=== PATIENT | male | born 1960 | race Hispanic/Latino ===

== ENCOUNTER 2018-04-18 10:10 | Inpatient (IN) | payer OTHER, SELFPAY ==
[2018-04-18] VITALS (8 sets, daily range): BP systolic 122–159; BP diastolic 72–96; PULSE 54–65; RESP 15–18; TEMP 36.4–37.1; O2SAT 96–99; BMI 34.0
--- NOTE | 2018-04-18 10:25 | DI.RAD.S_ITS ---
PROCEDURE: XR CHEST 2V INDICATIONS: pt in waiting room TECHNIQUE: 2 views of the chest were acquired. COMPARISON: None. FINDINGS: Surgical changes and devices: None. Lungs and pleura: Lungs are clear. No pleural effusions or pneumothorax. Mediastinum: Mediastinal contours are normal. Heart size is normal. Bones and chest wall: No suspicious bony abnormalities. Soft tissues appear unremarkable. IMPRESSION: No acute disease. No focal consolidation. Dictated by: Doc Guerra M.D. on 04/18/2018 at 10:36 Approved by: Doc Guerra M.D. on 04/18/2018 at 10:36
--- NOTE | 2018-04-18 11:50 | ED_ITS ---
HPI - Recheck/Abnormal Lab/Rx General Chief Complaint: Recheck/Abnormal Lab/Rx Stated Complaint: Vomiting/dehydrated Time Seen by Provider: 04/18/18 11:50 Source: patient Mode of arrival: ambulatory Limitations: no limitations History of Present Illness HPI narrative: This a 57-year-old male who comes in with complaint of vomiting diarrhea for about 3 days. Patient states it started about Monday. He states that 2 weeks ago he was seen at a hospital in [facility] he had left-sided chest pain that was worse with of his arm as well as a cough that would not resolve. Patient was diagnosed with pneumonia and started on antibiotic which he states he was taking once daily. He states that his cough has improved as well as the chest pain. He states he was overnight in the ER and was not admitted patient denies any fevers. He has been having a vomiting frequently and able to sometimes keep down fluids but not consistently. He states he has also been having loose watery stools multiple times a day. He states he has not noticed any black or blood. Patient denies any dysuria, urgency or frequency. He has abdominal pain on the left side which has been worsening. It is not radiate to his back. Patient states he was diagnosed with hypertension and started on blood pressure medication. He also states that he had some kind of issue with his bowel where it was blocked or twisted and they did what he describes as laparoscopic surgery to resolve it. He states this was several years ago he is not sure if it was a bowel obstruction, volvulus or other cause. Patient lives in the [facility], he has been working on [employer]. Related Data Home Medications Medication Instructions Recorded Confirmed albuterol sulfate [Ventolin HFA] 2 puff INHALATION Q4H PRN 04/18/18 04/18/18 gabapentin 300 mg PO BEDTIME PRN 04/18/18 04/18/18 losartan 50 mg PO DAILY 04/18/18 04/18/18 Allergies Allergy/AdvReac Type Severity Reaction Status Date / Time No Known Drug Allergies Allergy Verified 04/18/18 10:23 Review of Systems Review of Systems ROS Unobtainable: All systems reviewed & are unremarkable except as noted in HPI and below Constitutional Denies chills, Denies fever(s), Denies lethargy and Denies weakness Cardiovascular Denies chest pain, Denies edema, Denies dyspnea and Denies dyspnea on exertion Respiratory Denies change in phlegm color, Denies chest congestion, Denies cough, Denies pain on inspiration, Denies dyspnea and Denies dyspnea on exertion Gastrointestinal Gastrointestinal: Reports abdominal pain (Left upper abdomen), Denies melena, Reports bloating, Denies hematochezia, Denies change in bowel habits, Reports diarrhea, Reports nausea, Reports vomiting and Denies hematemesis Genitourinary Denies hematuria, Denies flank pain and Denies urinary urgency Musculoskeletal Denies back pain and Denies radiating pain into limb Neurologic Denies weakness [facility] Medical History Hypertension (Acute) Gout (Chronic) Incisional hernia (Chronic) Surgical History History of laparoscopy (Resolved) Social History details: Lives in [facility] Smoking Status: Never smoker Social History details: Lives in [facility] household members: spouse Smoking Status: Never smoker Exam Narrative Exam Narrative: GENERAL: Alert and oriented x three, well-nourished, well-appearing male in mild distress. HEENT: Head normocephalic, atraumatic, EOMI, pupils reactive, face symmetric, moist mucous membranes NECK: Supple, full range of motion CARDIOVASCULAR: Regular rate and rhythm without murmurs, rubs or gallops. RESPIRATORY: Breath sounds equal bilaterally, no wheezes rales or rhonchi. ABDOMEN: Soft, positive for left upper quadrant tenderness, present but mild in the left lower quadrant. Hypoactive bowel sounds all 4 quadrants. No guarding or rebound, rigidity, no mass. Mildly distended, no tympany. : No CVA tenderness EXTREMITIES: Normal range of motion, no clubbing or edema. Neurovascularly intact NEUROLOGICAL: Cranial nerves II through XII grossly intact. Moving all extremities SKIN: Warm, dry, no petechiae, no rashes or lesions. Initial Vital Signs Initial Vital Signs: Vital Signs Temperature 98.7 F 04/18/18 10:23 Pulse Rate 59 L 04/18/18 10:23 Respiratory Rate 18 04/18/18 10:23 Blood Pressure 159/96 H 04/18/18 10:23 Pulse Oximetry 99 04/18/18 10:23 Course Orders Ordered: ED Orders 04/18/18 10:25 XR chest 2V Stat 04/18/18 11:49 EKG-12 Lead Stat 04/18/18 12:05 Complete Blood Count AUTO DIFF Stat Comprehensive Metabolic Panel Stat Lipase Stat Partial Thromboplastin Time Stat Prothrombin Time INR Stat 04/18/18 12:25 Urine Microscopic Stat 04/18/18 12:32 CT abdomen pelvis w con Stat 04/18/18 16:16 Consult to Discharge Planning Routine Education, smoking cessation ONGOING 04/19/18 05:00 Complete Blood Count AUTO DIFF Routine Comprehensive Metabolic Panel Routine Enoxaparin Sodium (Lovenox) 40 mg SUBCUT DAILY [facility] Last Admin: 04/18/18 19:24 Dose: 40 mg Lactated Ringer's (Lactated Ringers) 1,000 mls @ 175 mls/hr IV CONT [facility] Last Admin: 04/18/18 19:23 Dose: 175 mls/hr Losartan Potassium (Cozaar) 50 mg PO DAILY [facility] Naloxone HCl (Narcan) 0.2 mg IV Q2MIN PRN PRN Reason: Opiate Reversal Discontinued Medications Acetaminophen (Tylenol) 975 mg PO NOW ONE Stop: 04/18/18 12:06 Last Admin: 04/18/18 13:04 Dose: 975 mg Sodium Chloride (Normal Saline 0.9%) 1,000 mls @ 1,000 mls/hr IV BOLUS ONE Stop: 04/18/18 13:04 Last Infusion: 04/18/18 14:37 Dose: 0 mls/hr Admin: 04/18/18 12:13 Dose: 1,000 mls/hr Sodium Chloride (Normal Saline 0.9%) 1,000 mls @ 200 mls/hr IV CONT [facility] Last Admin: 04/18/18 15:07 Dose: Not Given Lactated Ringer's (Lactated Ringers) 1,000 mls @ 1,000 mls/hr IV BOLUS ONE Stop: 04/18/18 15:54 Last Admin: 04/18/18 14:58 Dose: 1,000 mls/hr Ondansetron HCl (Zofran) 4 mg IV NOW ONE Stop: 04/18/18 12:06 Last Admin: 04/18/18 12:13 Dose: 4 mg Vital Signs - 8 hr 04/18/18 12:45 04/18/18 13:00 04/18/18 13:45 Temperature Pulse Rate 65 54 L 57 L Respiratory Rate 15 17 16 Blood Pressure Blood Pressure [Right Arm] 129/72 127/88 131/79 Pulse Oximetry 98 96 99 04/18/18 15:00 04/18/18 15:37 04/18/18 16:08 Temperature 97.6 F Pulse Rate 54 L 54 L 57 L Respiratory Rate 15 16 16 Blood Pressure 128/79 144/84 H Blood Pressure [Right Arm] 122/77 Pulse Oximetry 97 97 98 MDM - Recheck/Abnormal Lab/Rx Lab Data Attestation: I reviewed the patient's lab results. Result diagrams: 04/18/18 12:05 04/18/18 12:05 Lab Results 04/18/18 04/18/18 04/18/18 Range/Units 12:05 12:05 12:05 WBC 5.4 (4.5-11.0) X10^3/uL RBC 4.99 (4.5-5.9) X10^6/uL Hgb 14.9 (13.5-17.5) g/dL Hct 42.1 (41-53) % MCV 84.3 (80-100) fL MCH 30.0 (26-34) PG MCHC 35.5 (30-36) % RDW 13.2 (11.6-14.8) % Plt Count 240 (150-400) X10^3/uL Neut % (Auto) Not Reportable Lymph % (Auto) Not Reportable [place] % (Auto) Not Reportable Eos % (Auto) Not Reportable Baso % (Auto) Not Reportable Lymph # (Auto) Not Reportable [place] # (Auto) Not Reportable Baso # (Auto) Not Reportable Total Counted 100 Seg Neutrophils % 64.0 (38-70) % Band Neutrophils % 5.0 (3-7) % Lymphocytes % (Manual) 7.0 L (25-45) % Atypical Lymphs % 10.0 H ( - 0) % Monocytes % (Manual) 13.0 H (2-11) % Eosinophils % (Manual) 1.0 L (2-4) % Neutrophils # (Manual) 3726 (8606-7923) /uL RBC Morphology Normal morphology PT 13.1 H (10.1-12.7) SECONDS INR 1.1 (0.9-1.3) APTT 29 (26.4-36.2) SECONDS Sodium 135 L (137-145) mmol/L Potassium 4.0 (3.4-5.1) mmol/L Chloride 97 L (98-107) mmol/L Carbon Dioxide 24 (22-32) mmol/L BUN 14 (9-20) mg/dL Creatinine 0.70 (0.66-1.25) mg/dL Estimated GFR > 60.0 (>60) mL/min BUN/Creatinine Ratio 20.0 (6-22) Glucose 118 H (70-100) mg/dL Calcium 9.0 (8.4-10.2) mg/dL Total Bilirubin 1.7 H (0.2-1.3) mg/dL AST 30 (17-59) IU/L ALT 46 (21-72) IU/L Alkaline Phosphatase 41 (38-126) U/L Total Protein 8.0 (6.3-8.2) g/dL Albumin 4.6 (3.5-5.0) g/dL Globulin 3.4 (1.7-4.1) g/dL Albumin/Globulin Ratio 1.4 (1.0-2.8) Lipase 35 (23-300) U/L Urine RBC (0-5/HPF) Urine WBC (0-5/HPF) Urine Bacteria (None) Ur Culture Indicated? 04/18/18 Range/Units 12:25 WBC (4.5-11.0) X10^3/uL RBC (4.5-5.9) X10^6/uL Hgb (13.5-17.5) g/dL Hct (41-53) % MCV (80-100) fL MCH (26-34) PG MCHC (30-36) % RDW (11.6-14.8) % Plt Count (150-400) X10^3/uL Neut % (Auto) Lymph % (Auto) [place] % (Auto) Eos % (Auto) Baso % (Auto) Lymph # (Auto) [place] # (Auto) Baso # (Auto) Total Counted Seg Neutrophils % (38-70) % Band Neutrophils % (3-7) % Lymphocytes % (Manual) (25-45) % Atypical Lymphs % ( - 0) % Monocytes % (Manual) (2-11) % Eosinophils % (Manual) (2-4) % Neutrophils # (Manual) (6393-1615) /uL RBC Morphology PT (10.1-12.7) SECONDS INR (0.9-1.3) APTT (26.4-36.2) SECONDS Sodium (137-145) mmol/L Potassium (3.4-5.1) mmol/L Chloride (98-107) mmol/L Carbon Dioxide (22-32) mmol/L BUN (9-20) mg/dL Creatinine (0.66-1.25) mg/dL Estimated GFR (>60) mL/min BUN/Creatinine Ratio (6-22) Glucose (70-100) mg/dL Calcium (8.4-10.2) mg/dL Total Bilirubin (0.2-1.3) mg/dL AST (17-59) IU/L ALT (21-72) IU/L Alkaline Phosphatase (38-126) U/L Total Protein (6.3-8.2) g/dL Albumin (3.5-5.0) g/dL Globulin (1.7-4.1) g/dL Albumin/Globulin Ratio (1.0-2.8) Lipase (23-300) U/L Urine RBC 0-1/hpf (0-5/HPF) Urine WBC 0-1/hpf (0-5/HPF) Urine Bacteria Few (2-10) H (None) Ur Culture Indicated? Cult not indicated Urine Dip Bedside Urine Glucose Negative Bedside Urine Bilirubin - Negative Bedside Urine Ketone - Negative Urine Specific [place] 1.010 Bedside Urine Occult Blood + Bedside Urine pH 6.0 Bedside Urine Protein +/- 15 Bedside Urine Urobilinogen - Negative Bedside Urine Nitrite - Negative Bedside Urine Leukocytes - Negative Esterase Imaging Data CT scan - abdomen: Radiologist's impression: Eileen Peña 57 M [address] [address] [address] Scan Report Signed Patient: Garrick PeñaMarlenR#: [id number] : 2Acct:[id number] Age/Sex: 57 / MDate of Service: 04/18/18 Loc: ED Accession Number: [id number] Procedure: CT abdomen pelvis w con Ordering Provider: Leora Del Valle D.O. PROCEDURE: CT ABDOMEN PELVIS W CON INDICATIONS: left abd pain, v,d. on abx for pna, better, hx sbo TECHNIQUE: After the administration of intravenous contrast, 5 mm thick sections acquired from the diaphragm to the symphysis. 5 mm coronal and sagittal reformats were acquired. For radiation dose reduction, the following was used: automated exposure control, adjustment of mA and/or kV according to patient size. COMPARISON: None. FINDINGS: Image quality: Excellent. ABDOMEN: Lung bases: Lung bases are clear. Heart size is normal. Solid organs: There is diffuse hepatic steatosis. No suspicious liver masses. Gallbladder is unremarkable. Biliary system is non dilated. Pancreas enhances normally. Spleen is normal in size and enhancement. No adrenal nodules. Kidneys demonstrate normal size and enhancement, without hydronephrosis. Peritoneum and bowel: There is a small bowel obstruction present, likely at the level of the distal jejunum. The jejunal loops measure up to 3.8 cm. Sigmoid diverticulosis without evidence of diverticulitis. No free air. Very minimal free fluid. No abscess cavity. Nodes and vessels: No retroperitoneal or mesenteric adenopathy by size criteria. Aorta and inferior vena cava are normal in size. Miscellaneous: There is a supraumbilical ventral hernia containing fat. There is also a periumbilical hernia containing fat. PELVIS: Genitourinary: Mild bladder wall thickening. Miscellaneous: No inguinal hernias or adenopathy. Bones: No suspicious bony lesions. No vertebral body compression fractures. IMPRESSION: 1. Small bowel obstruction, likely at the level of the distal jejunum. 2. Sigmoid diverticulosis without evidence of diverticulitis. 3. Hepatic steatosis. Dictated by: Bridger Lopez M.D. on 04/18/2018 at 13:02 Approved by: Bridger Lopez M.D. on 04/18/2018 at 13:07 Chest x-ray: Radiologist's impression: Eileen Peña 57 M [address] [address] XRay Report Signed Patient: Garrick PeñaMarlenR#: [id number] : 1960cct:[id number] Age/Sex: 57 / MDate of Service: 04/18/18 Loc: ED Accession Number: [id number] Procedure: XR chest 2V Ordering Provider: Leora Del Valle D.O. PROCEDURE: XR CHEST 2V INDICATIONS: pt in waiting room TECHNIQUE: 2 views of the chest were acquired. COMPARISON: None. FINDINGS: Surgical changes and devices: None. Lungs and pleura: Lungs are clear. No pleural effusions or pneumothorax. Mediastinum: Mediastinal contours are normal. Heart size is normal. Bones and chest wall: No suspicious bony abnormalities. Soft tissues appear unremarkable. IMPRESSION: No acute disease. No focal consolidation. Dictated by: Doc Guerra M.D. on 04/18/2018 at 10:36 Approved by: Doc Guerra M.D. on 04/18/2018 at 10:36 [facility] Narrative Medical decision making narrative: Patient had chest x-ray ordered by triage which is negative and does not show pneumonia at this time. Patient's rapid medical records have been requested from the other hospital. Patient's lab work shows elevated bilirubin, no white count, no anemia, patient's electrolytes not show major abnormalities. Patient was able to tolerate some p.o. Tylenol which she requested in lieu of IV pain medication. He did receive some Zofran here. He has not been vomiting in the department but not had any other oral fluids. PCN CT shows appears to be bowel obstruction, with patient continued to have some liquidy stools but having fairly consistent vomiting suspect patient has a partial bowel obstruction particularly with his history of abdominal surgery for either the same or volvulus or similar. Spoke with Dr. Grant who accepts. She requested that surgery be notified and I spoke with Dr. Diaz who is aware. Dr. Diaz saw the patient in the department, he feels the patient would be fine just being on general surgery service and does not require hospitalist. Dr. Grant was updated by Dr. Diaz. Discharge Plan Departure Patient Disposition: Admitted as Observation Clinical Impression: Partial bowel obstruction Discharge Date/Time: 04/18/18 15:48 Interventions: ED Discharge Assessment Last Done: 04/18/18 15:37 Admit Date/Time: 04/18/18 13:39 Admit Provider: John Diaz
[2018-04-18 12:13] LABS: Mean Corpuscular HGB Conc 35.5 % (30-36); Red Blood Cell Count 4.99 X10^6/uL (4.5-5.9)
[2018-04-18] MEDS: ONDANSETRON 4 MG/2 ML INJ IV (12:13)
[2018-04-18] MEDS: SODIUM CHLORIDE 0.9% 1,000 ML 1000 ML IV (12:13)
[2018-04-18 12:19] LABS: INR 1.1 (0.9-1.3); Prothrombin Time 13.1 SECONDS (10.1-12.7)
[2018-04-18 12:20] LABS: Hematocrit 42.1 % (41-53); Hemoglobin 14.9 g/dL (13.5-17.5); Mean Corpuscular Volume 84.3 fL (80-100); Platelet Count 240 X10^3/uL (150-400); Red Cell Distribution Width 13.2 % (11.6-14.8); White Blood Cell Count 5.4 X10^3/uL (4.5-11.0)
[2018-04-18 12:22] LABS: Add Manual Diff / Slide Review YES; PTT Partial Thromboplastin Tim 29 SECONDS (26.4-36.2)
[2018-04-18 12:24] LABS: Alanine Aminotransferase 46 IU/L (21-72); Albumin 4.6 g/dL (3.5-5.0); Albumin Globulin Ratio 1.4 (1.0-2.8); Alkaline Phosphatase 41 U/L (38-126); Aspartate Aminotransferase 30 IU/L (17-59); Bilirubin Total 1.7 mg/dL (0.2-1.3); Blood Urea Nitrogen 14 mg/dL (9-20); Carbon Dioxide 24 mmol/L (22-32); Chloride 97 mmol/L (98-107); Estimated Glomerular Filt Rate > 60.0 mL/min (>60); Globulin 3.4 g/dL (1.7-4.1); Glucose 118 mg/dL (70-100); HEMOLYSIS 35 (0-50); Lipase 35 U/L (23-300); Sodium 135 mmol/L (137-145)
--- NOTE | 2018-04-18 12:32 | DI.CT.S_ITS ---
PROCEDURE: CT ABDOMEN PELVIS W CON INDICATIONS: left abd pain, v,d. on abx for pna, better, hx sbo TECHNIQUE: After the administration of intravenous contrast, 5 mm thick sections acquired from the diaphragm to the symphysis. 5 mm coronal and sagittal reformats were acquired. For radiation dose reduction, the following was used: automated exposure control, adjustment of mA and/or kV according to patient size. COMPARISON: None. FINDINGS: Image quality: Excellent. ABDOMEN: Lung bases: Lung bases are clear. Heart size is normal. Solid organs: There is diffuse hepatic steatosis. No suspicious liver masses. Gallbladder is unremarkable. Biliary system is non dilated. Pancreas enhances normally. Spleen is normal in size and enhancement. No adrenal nodules. Kidneys demonstrate normal size and enhancement, without hydronephrosis. Peritoneum and bowel: There is a small bowel obstruction present, likely at the level of the distal jejunum. The jejunal loops measure up to 3.8 cm. Sigmoid diverticulosis without evidence of diverticulitis. No free air. Very minimal free fluid. No abscess cavity. Nodes and vessels: No retroperitoneal or mesenteric adenopathy by size criteria. Aorta and inferior vena cava are normal in size. Miscellaneous: There is a supraumbilical ventral hernia containing fat. There is also a periumbilical hernia containing fat. PELVIS: Genitourinary: Mild bladder wall thickening. Miscellaneous: No inguinal hernias or adenopathy. Bones: No suspicious bony lesions. No vertebral body compression fractures. IMPRESSION: 1. Small bowel obstruction, likely at the level of the distal jejunum. 2. Sigmoid diverticulosis without evidence of diverticulitis. 3. Hepatic steatosis. Dictated by: Bridger Lopez M.D. on 04/18/2018 at 13:02 Approved by: Bridger Lopez M.D. on 04/18/2018 at 13:07
[2018-04-18 12:45] LABS: Neutrophils Absolute Manual 3726 /uL (3000-5900); RBC Morphology Normal Morphology; Total Cells Counted 100
[2018-04-18] MEDS: ACETAMINOPHEN 325 MG TABLET 975 MG PO (13:04)
[2018-04-18 13:33] LABS: Bacteria Urine Few (2-10); RBC Urine 0-1/HPF (0-5/HPF); WBC Urine 0-1/HPF (0-5/HPF)
[2018-04-18 13:34] LABS: Culture Indicated Urine Cult Not Indicated
[2018-04-18] MEDS: LACTATED RINGERS 1,000 ML 1000 ML IV (14:58)
--- NOTE | 2018-04-18 15:26 | P.HP_ITS ---
History of Present Illness Date Patient Seen: 04/18/18 Time Patient Seen: 13:29 Chief complaint: Vomiting/dehydrated Narrative: the patient is a gentleman who has been sick since Monday morning. He developed left upper abdominal pain with nausea and persistent vomiting. He has had a bowel obstruction in the past and underwent a laparoscopic treatment of that. He is unaware that any intestine was removed. That is the only abdominal operation is undergone. He has had no hematemesis and passed no blood per rectum. Colonoscopy done a year to ago was normal. He is working in the [employer] that we is from [employer]. He has had no fever or chills. Patient History Medical History Hypertension (Acute) Gout (Chronic) Incisional hernia (Chronic) Surgical History History of laparoscopy (Resolved) Social History details: Lives in [facility] Smoking Status: Never smoker Family & Social History Safety & Behavioral: Feels Safe in Current Yes Environment Been Physically Hurt or No Threatened By a Person Tobacco & Substance use: Smoking Status Never smoker alcohol intake frequency holiday/special occasion Substance Use Type does not use Meds Home Medications Medication Instructions Recorded Confirmed Type albuterol sulfate [Ventolin HFA] 2 puff INHALATION Q4H PRN 04/18/18 04/18/18 History gabapentin 300 mg PO BEDTIME PRN 04/18/18 04/18/18 History losartan 50 mg PO DAILY 04/18/18 04/18/18 History Allergies Allergy/AdvReac Type Severity Reaction Status Date / Time No Known Drug Allergies Allergy Verified 04/18/18 10:23 Review of Systems Review of Systems the patient denies double vision pain is eyes earaches. He has a sore throat from vomiting. Normally does not. No trouble swallowing. No cough or cold at this time. No sputum production. No heart problems that he does have hypertension and was recently started on medication losartan. The patient denies black or bloody bowel movements. No history of kidney stones. No problems urinating. No blood in his urine. No seizures or blackouts. No numbness or tingling. No problems with his thyroid pancreas. He does suffer from gout and is on medication for it. No unusual bruising or bleeding. No new lesions of his skin. He knows that he has a hernia since his laparoscopy near his belly button. Exam Vital Signs (past 8 hours): - 04/18/18 10:23 Temperature 98.7 F Pulse Rate 59 L Respiratory Rate 18 Blood Pressure 159/96 H Pulse Oximetry 99 Oxygen Delivery Method Room Air Narrative Exam Narrative: Operative no apparent distress. Eyes are nonicteric. Pupils equal round reactive to light. Ears right ear has an odd pale raised lesion on the pinna. It was a bit scaly to touch. Not tender and not inflamed. Left ear without lesion. Nasal septum midline. No deviation. Oral mucosa is dry an open lesions. Teeth are intact. No splits of the lips. His lungs are clear to auscultation without rales or rhonchi. Equal percussion. Heart regular rate and rhythm without murmur gallop. No heave lift or thrill. His abdomen is protuberant and distended. He has reducible nontender incisional hernia near his umbilicus. There is no significant tenderness on fairly vigorous exam of his abdomen. There are no inguinal hernias. His extremities normal hair pattern no open lesions. 2+ dorsalis pedis pulses. No bony deformities of his 4 extremities. The patient is alert and oriented. Speech rate and content are appropriate. Affect is appropriate. His extraocular movements are intact time was midline face is symmetric. Uvula elevates in the midline. Gait is unremarkable. Moves without difficulty. Objective Imaging CT scan - abdomen: My impression: Evidence of a partial obstruction. Patient has gas in his colon as well stool but does have a dilated proximal and middle small bowel. I do not see any other lesions. Labs Result Diagrams: 04/18/18 12:05 04/18/18 12:05 Labs: Laboratory Results - last 24 hr 04/18/18 04/18/18 04/18/18 12:05 12:05 12:05 WBC 5.4 RBC 4.99 Hgb 14.9 Hct 42.1 MCV 84.3 MCH 30.0 MCHC 35.5 RDW 13.2 Plt Count 240 Neut % (Auto) Not Reportable Lymph % (Auto) Not Reportable [place] % (Auto) Not Reportable Eos % (Auto) Not Reportable Baso % (Auto) Not Reportable Lymph # (Auto) Not Reportable [place] # (Auto) Not Reportable Baso # (Auto) Not Reportable Total Counted 100 Seg Neutrophils % 64.0 Band Neutrophils % 5.0 Lymphocytes % (Manual) 7.0 L Atypical Lymphs % 10.0 H Monocytes % (Manual) 13.0 H Eosinophils % (Manual) 1.0 L Neutrophils # (Manual) 3726 RBC Morphology Normal morphology PT 13.1 H INR 1.1 APTT 29 Sodium 135 L Potassium 4.0 Chloride 97 L Carbon Dioxide 24 BUN 14 Creatinine 0.70 Estimated GFR > 60.0 BUN/Creatinine Ratio 20.0 Glucose 118 H Calcium 9.0 Total Bilirubin 1.7 H AST 30 ALT 46 Alkaline Phosphatase 41 Total Protein 8.0 Albumin 4.6 Globulin 3.4 Albumin/Globulin Ratio 1.4 Lipase 35 Urine RBC Urine WBC Urine Bacteria Ur Culture Indicated? 04/18/18 12:25 WBC RBC Hgb Hct MCV MCH MCHC RDW Plt Count Neut % (Auto) Lymph % (Auto) [place] % (Auto) Eos % (Auto) Baso % (Auto) Lymph # (Auto) [place] # (Auto) Baso # (Auto) Total Counted Seg Neutrophils % Band Neutrophils % Lymphocytes % (Manual) Atypical Lymphs % Monocytes % (Manual) Eosinophils % (Manual) Neutrophils # (Manual) RBC Morphology PT INR APTT Sodium Potassium Chloride Carbon Dioxide BUN Creatinine Estimated GFR BUN/Creatinine Ratio Glucose Calcium Total Bilirubin AST ALT Alkaline Phosphatase Total Protein Albumin Globulin Albumin/Globulin Ratio Lipase Urine RBC 0-1/hpf Urine WBC 0-1/hpf Urine Bacteria Few (2-10) H Ur Culture Indicated? Cult not indicated Assessment & Plan Assessment & Plan narrative: Patient with partial small-bowel obstruction. He continues to pass gas and have bowel movements. It is diarrhea however. He says this is abdomen is got much smaller since yesterday. A set was actually hard and much bigger. He may have a viral illness or some other cause of partial obstruction. At this point I would like to observe him and hydrate him. If he does not clinically improved will consider small bowel follow through. At this time he has a normal white count and is not tender and therefore I do not feel there is any need to take him to the operating room as he has no signs of ischemia. Will treat his hypertension with oral medication. At this time the patient is not having any respiratory findings therefore will hold his albuterol will clarify his gout issue. If indeed he has gout which is not seem to be the case based on his med list I would start him on allopurinol.
[2018-04-18] MEDS: LACTATED RINGERS 1,000 ML 175 ML IV ×2 (19:23→22:49)
[2018-04-18] MEDS: ENOXAPARIN 40 MG/0.4 ML SYRINGE SUBCUT (19:24)
[2018-04-19] VITALS: BP 107/62; PULSE 50; RESP 16; TEMP 36.8; O2SAT 97
--- NOTE | 2018-04-19 | DI.RAD.S_ITS ---
PROCEDURE: FL SMALL BOWEL FOLLOW THROUGH INDICATIONS: sbo: therapeutic vs diagnostic COMPARISON: [facility], CR, XR ABDOMEN MIN 2V, 04/19/2018, 8:09. FINDINGS: The comparison KUB dated 04/19/2018 demonstrates KUB: Preprocedural ride operator film demonstrates a normal bowel gas pattern mild dilation of the small bowel in the left upper quadrant. A few air fluid levels are present. No suspicious abdominal calcifications. Visualized solid organ contours appear normal. No suspicious bony abnormalities. Small bowel: There is normal transit time of barium through the small bowel. Small bowel loops are of normal caliber throughout. Mucosal folds are smooth and of normal thickness. No strictures, intraluminal masses, or extrinsic mass effects are noted. The terminal ileum is identified, and is normal in morphology. IMPRESSION: Normal small bowel follow-through. Rapid small bowel transit time with oral contrast reached cecum by 30 minutes. Dictated by: Dariel Joe M.D. on 04/19/2018 at 11:32 Approved by: Dariel Joe M.D. on 04/19/2018 at 11:38
--- NOTE | 2018-04-19 | DI.RAD.S_ITS ---
PROCEDURE: XR ABDOMEN MIN 2V INDICATIONS: f/u sbo TECHNIQUE: 2 views of the abdomen were acquired. COMPARISON: [facility], CT, CT ABDOMEN PELVIS W CON, 04/18/2018, 12:46. FINDINGS: Surgical changes and devices: None. Bowel: No pneumoperitoneum. There is paucity of distal small bowel gas with mildly distended jejunal loops in the left upper quadrant and a few air-fluid levels in the mid abdomen. Soft tissues: No masses; visualized solid organ contours appear normal in size. No suspicious abdominal calcifications. Bones: No suspicious bony abnormalities. Mild scoliosis and degenerative changes in lumbar spine. IMPRESSION: Persistent small bowel obstruction. Dictated by: Draiel Joe M.D. on 04/19/2018 at 9:22 Approved by: Dariel Joe M.D. on 04/19/2018 at 9:27
[2018-04-19] MEDS: LACTATED RINGERS 1,000 ML 175 ML IV (04:36)
[2018-04-19 06:09] LABS: Add Manual Diff / Slide Review NO; Basophils Absolute Auto 0 /uL (0-100); Basophils Percent Auto 0.5 % (0-2); Eosinophils Absolute Auto 100 /uL (0-450); Hematocrit 37.5 % (41-53); Lymphocytes Absolute Auto 1200 /uL (1100-4500); Lymphocytes Percent Auto 37.6 % (25-40); Mean Corpuscular HGB Conc 34.8 % (30-36); Mean Corpuscular Hemoglobin 29.9 PG (26-34); Monocytes Absolute Auto 500 /uL (0-900); Monocytes Percent Auto 16.1 % (3-14); Neutrophils Absolute Auto 1400 /uL (1500-7000); Neutrophils Percent Auto 43.8 % (50-75); Platelet Count 200 X10^3/uL (150-400); Red Blood Cell Count 4.36 X10^6/uL (4.5-5.9); Red Cell Distribution Width 13.1 % (11.6-14.8); White Blood Cell Count 3.2 X10^3/uL (4.5-11.0)
[2018-04-19 06:21] VITALS: BP 112/70; PULSE 53; RESP 16; TEMP 37.2; O2SAT 98
[2018-04-19 06:38] LABS: Alanine Aminotransferase 46 IU/L (21-72); Albumin 3.5 g/dL (3.5-5.0); Albumin Globulin Ratio 1.3 (1.0-2.8); Alkaline Phosphatase 36 U/L (38-126); Aspartate Aminotransferase 25 IU/L (17-59); BUN Creatinine Ratio 13.8 (6-22); Bilirubin Total 1.4 mg/dL (0.2-1.3); Blood Urea Nitrogen 11 mg/dL (9-20); Calcium 8.5 mg/dL (8.4-10.2); Carbon Dioxide 25 mmol/L (22-32); Chloride 104 mmol/L (98-107); Estimated Glomerular Filt Rate > 60.0 mL/min (>60); Globulin 2.8 g/dL (1.7-4.1); Glucose 91 mg/dL (70-100); HEMOLYSIS < 15 (0-50); Potassium 3.9 mmol/L (3.4-5.1); Sodium 137 mmol/L (137-145); Total Protein 6.3 g/dL (6.3-8.2)
[2018-04-19 08:39] VITALS: BP 110/48; PULSE 50
[2018-04-19] MEDS: LOSARTAN 50 MG TABLET PO (08:39)
[2018-04-19] MEDS: ENOXAPARIN 40 MG/0.4 ML SYRINGE SUBCUT (08:42)
[2018-04-19 09:40] VITALS: BP 110/48; PULSE 50; RESP 18; TEMP 36.2; O2SAT 98
--- NOTE | 2018-04-19 10:50 | CM.IDA ---
Discharge Planning/Care Management CM Discharge Assessment Start: 04/19/18 10:41 Freq: Status: Active Protocol: Document 04/19/18 10:41 JADEN (Rec: 04/19/18 10:50 JADEN [id number]) Discharge Planning Assessment Assigned Cutting Machine Tender CONRADO Monzon DPOA/Assigned Designee Name Shahla Peña, spouse Contact Information [phone] Advance Directives? Yes History Provided By Patient Medical Record Prior Living Arrangements House Household Members spouse Comment Pt from [employer], working in the area temporarily. Type of transporation used prior to Drives own vehicle admit Independent with ADL's Yes Is patient alert and oriented? Yes Barriers to Discharge No Comment Pt here for SBO, managed by general surgical team.Per ER note, recent dx of pneumonia 2 weeks ago, started on abx at that time. Payer: [employer]. Reviewed chart. Pt w/ partial SBO, conservative management by Dr Diaz; observe and hydrate at this time. WBC normal. Medical management continues. P: Likely DC home when medically cleared. This SPEAKING UNIT ASSEMBLER following in case DC needs or concerns arise. CONRADO Prasad Discharge Plan Home Transportation Arrangement Unknown at this time Referrals Initiated None needed Additional Comment Pending medical POC Review Status In Process
[2018-04-19 11:42] VITALS: BP 121/68; PULSE 52; RESP 16; TEMP 36.1; O2SAT 96
--- NOTE | 2018-04-19 13:01 | PC.NURSE ---
Patient states that he discussed possibility of leaving today with Dr. Diaz this morning. He is here in town for work (lives in [place]) and his work crew is driving home today. Dr. Diaz notified patient would like to leave for discharge, Dr. Camacho not planning to discharge patient and is recommending patient stay overnight in hospital for continued treatment. Relayed this information to patient (and his over the phone) that doctor is recommending patient stay for treatment. Patient's states she works for [employer] and that she will take patient into ER in [place], [place] upon patient's arrival home. Patient and request records be transferred to [employer]. Dr. Diaz notified that patient will be signing out AMA at this time.
--- NOTE | 2018-04-19 13:51 | PC.NURSE ---
Patient decided to leave and seek further care at [facility] ER. IV dc'd intact. Patient escorted out with all his belongings. Patient recommended to maintain clear liquid diet with no carbonation until further instructed by MD. Patient instructed to seek emergent care if symptoms return or worsen.
[2018-04-19 16:02] LABS: Adenovirus F 40/41 Not Detected (Not Detect); Astrovirus Not Detected (Not Detect); Campylobacter Not Detected (Not Detect); Clostridium difficile toxin AB Not Detected (Not Detect); Cryptosporidium Not Detected (Not Detect); Cyclospora cayetanensis Not Detected (Not Detect); Entamoeba histolytica Not Detected (Not Detect); Enteroaggregative E.coli Not Detected (Not Detect); Enteropathogenic E.coli Not Detected (Not Detect); Enterotoxigenic E.coli It/st Not Detected (Not Detect); Giardia lamblia Not Detected (Not Detect); Norovirus GI/GII Detected (Not Detect); Plesiomonsa shigelloides Not Detected (Not Detect); Salmonella Not Detected (Not Detect); Shiga-like toxin-prod E.coli Not Detected (Not Detect); Shigella/Enteroinvasive E.coli Not Detected (Not Detect); Vibrio Not Detected (Not Detect); Vibrio cholerae Not Detected (Not Detect); Yersinia enterocolitica Not Detected (Not Detect)
[2018-04-19 16:03] LABS: Rotavirus A Not Detected (Not Detect); Sapovirus Not Detected (Not Detect)
== END 2018-04-19 13:56 | disposition home or self-care (01) | DRG 390 ==
LOC: ED 13:27 → AC 14:31
PROVIDERS: Admitting Provider Specialist; Emergency Provider Emergency Medicine; Visit Provider Specialist
DX: K56.600 Partial intestinal obstruction, unspecified as to cause (principal); E86.0 Dehydration; I10 Essential (primary) hypertension
CPT/HCPCS: 36415; 36591; 71046; 74019; 74177; 74250; 80053; 81003; 81015; 83690; 85025; 85610; 85730; 87507; 93005; 99222; 99283; 99285; J1650; J2405; Q9967